=== PATIENT | male | born 1995 | race Caucasian/White ===

== ENCOUNTER 2016-10-10 14:17 | Emergency (ER) | payer OTHER ==
[~2016-10-10] VITALS: Ht 180.3 cm; Wt 79.4 kg
[2016-10-10 14:20] VITALS: BP 124/80
[2016-10-10] MEDS ORDERED: HYDROCODONE/APAP 5/325MG 1 EACH TABLET PO STA (14:43)
[2016-10-10] MEDS ORDERED: HYDROCODONE/APAP 5/325MG 1 EACH TABLET ONE (14:43)
--- NOTE | 2016-10-10 16:18 | NUR ---
CALLED KAITLYNN TO READ FACIAL CT
== END 2016-10-10 16:40 | disposition home or self-care (01) ==
LOC: ER 14:19
DX: S05.12XA Contusion of eyeball and orbital tissues, left eye, initial encounter (principal); F17.200 Nicotine dependence, unspecified, uncomplicated; Y04.8XXA Assault by other bodily force, initial encounter; Y93.9 Activity, unspecified; Y92.9 Unspecified place or not applicable; Y99.9 Unspecified external cause status
CPT/HCPCS: 70450; 70486; 99284; A4606; Z7610

== ENCOUNTER 2018-09-18 18:52 | Emergency (ER) | payer BC, OTHER ==
[~2018-09-18] VITALS: Ht 182.9 cm; Wt 86.2 kg
[2018-09-18 19:42] VITALS: BP 141/92
--- NOTE | 2018-09-18 20:56 | NUR ---
I & D IN PROGRESS AT THE BEDSIDE.
[2018-09-18] MEDS ORDERED: HYDROCODONE/APAP 5/325MG 1 EACH TABLET ONE (21:12)
[2018-09-18] MEDS ORDERED: HYDROCODONE/APAP 5/325MG 1 EACH TABLET PO ONE (21:30)
[2018-09-18] MEDS ORDERED: TDAP [DIPH/PERTUSSIS/TET] 0.5 ML VIAL IM ONE ×2 (21:45→22:00)
--- NOTE | 2018-09-18 21:53 | NUR ---
PT REFUSED CRUTCHES. PT WENT TO THE CAR WITH A WC.
== END 2018-09-18 21:56 | disposition home or self-care (01) ==
LOC: ER 18:56
DX: L02.416 Cutaneous abscess of left lower limb (principal); L03.116 Cellulitis of left lower limb; F12.90 Cannabis use, unspecified, uncomplicated
CPT/HCPCS: 10060; 90471; 90715; 99284; A4606